=== PATIENT | female | born 1955 | race Caucasian/White ===

== ENCOUNTER → 2024-06-28 | Outpatient (CLI) | payer BC, MEDICAID, SELFPAY ==
--- NOTE | 2024-06-28 11:07 | XR_ITS ---
Examination: PA lateral chest 2 views TECHNIQUE: Upright PA lateral chest 2 views Exam date and time: June 28, 2024 1121 hours INDICATIONS: History pulmonary nodule 1 year FINDINGS: 25 mm pulmonary nodule left lower lobe compared to [address] scan May 22, 2022 No significant cardiac enlargement Right thoracolumbar central line tip satisfactory position IMPRESSION: Enlarging pulmonary nodule left lower lobe, recommend CT chest without contrast follow-up
== END | disposition home or self-care (01) ==
PROVIDERS: PCP Family Medicine; Referring Provider Specialist; Visit Provider Specialist
DX: R91.1 Solitary pulmonary nodule (principal)
CPT/HCPCS: 71046